=== PATIENT | male | born 2000 | race African-American/Black ===

== ENCOUNTER 2024-05-08 13:31 | Emergency (ER) | payer MEDICAID ==
[~2024-05-08] VITALS: Ht 175.3 cm; Wt 87.0 kg
[2024-05-08 13:39] VITALS: O2SAT 100
[2024-05-08] MEDS: DEXAMETHASONE 4MG/ML 1ML VIAL IM ONE (15:51)
[2024-05-08] MEDS: KETOROLAC 30MG/ML VIAL IM ONE (15:51)
[2024-05-08] MEDS ORDERED: IBUP-2030 MT (16:28)
[2024-05-08] MEDS ORDERED: AMOX-494 MT (16:28)
[2024-05-08] MEDS ORDERED: BENZ1LOZ73 MT (16:28)
[2024-05-08 16:37] VITALS: BP 128/84; PULSE 95; RESP 15; TEMP 37.28076; O2SAT 99
== END 2024-05-08 16:37 | disposition home or self-care (01) ==
LOC: ER 13:31
DX: J02.9 Acute pharyngitis, unspecified (principal)
CPT/HCPCS: 87430; 87070; 96372; 99284; J1100; J1885; Z7610